=== PATIENT | female | born 1985 | race Asian ===

== ENCOUNTER 2017-07-12 00:30 | Inpatient (IN) | payer SELFPAY ==
[~2017-07-12] VITALS: Ht 165 cm; Wt 81.6 kg
[2017-07-12] MEDS: LACTATED RINGERS 1,000 ML IV SCH ×2 (01:33→02:39)
[2017-07-12 01:42] LABS: BASOPHILS # (AUTO) 0.1 K/uL (0.00-0.22); BASOPHILS % (AUTO) 0.7 % (0.0-2.0); EOSINOPHILS # (AUTO) 0.1 K/uL (0-0.4); EOSINOPHILS % (AUTO) 0.9 % (0.0-4.0); HEMATOCRIT 36.4 % (36-48); HEMOGLOBIN 12.2 g/dL (12.0-16.0); LYMPHOCYTES # (AUTO) 1.2 K/uL (2.5-16.5); LYMPHOCYTES % (AUTO) 12.8 % (20.5-51.1); MEAN CORPUSCULAR HEMOGLOBIN 30 pg (27-31); MEAN CORPUSCULAR HGB CONC 34 g/dL (33-37); MEAN CORPUSCULAR VOLUME 90 fL (80-94); MONOCYTES # (AUTO) 0.8 K/uL (0.8-1.0); MONOCYTES % (AUTO) 8.1 % (1.7-9.3); NEUTROPHILS # (AUTO) 7.5 K/uL (1.8-7.7); NEUTROPHILS % (AUTO) 77.5 % (42.2-75.2); PLATELET COUNT (AUTO) 217 K/uL (140-450); RED BLOOD CELL COUNT(AUTO) 4.06 MIL/uL (4.20-5.40); RED CELL DISTRIBUTION WIDTH 14.2 % (11.6-13.7); WHITE BLOOD COUNT (AUTO) 9.7 K/uL (4.8-10.8)
[2017-07-12 01:43] LABS: APPEARANCE,URINE CLEAR (CLEAR); BILIRUBIN,URINE NEGATIVE (NEGATIVE); BLOOD, URINE NEGATIVE (NEGATIVE); COLOR,URINE YELLOW (YELLOW); LEUKOCYTE ESTERASE ,URINE NEGATIVE (NEGATIVE); NITRITE, URINE NEGATIVE (NEGATIVE); UGLUCOSE NEGATIVE (NEGATIVE)
[2017-07-12 01:51] LABS: RBC,URINE 0-5 (RARE) /HPF (0-5); WBC,URINE 0-5 (RARE) /HPF (0-5)
[2017-07-12] MEDS ORDERED: FERR325E14 PO (02:15)
[2017-07-12] MEDS ORDERED: PREN-546 PO (02:15)
[2017-07-12 02:19] VITALS: BP 105/69
[2017-07-12] MEDS ORDERED: INFLUENZA VIRUS VACCINE QUAD 0.5 ML SYR IMVAC SCH (03:00)
[2017-07-12] MEDS ORDERED: ceFAZolin 1,000 MG VIAL ONE (05:08)
[2017-07-12] MEDS ORDERED: CITRIC ACID/SODIUM CITRATE 30 ML UDC ONE (05:08)
[2017-07-12] MEDS ORDERED: TRIAMCINOLONE 10 MG/ML 5ML VIAL ONE (05:56)
[2017-07-12] MEDS ORDERED: OXYTOCIN 10 UNITS/ML VIAL ONE (05:56)
[2017-07-12] MEDS ORDERED: [UNRECOGNIZED DRUG - REMARK] IVP ONE (06:00)
[2017-07-12] MEDS ORDERED: BUPIVACAINE-MPF 0.75% 10 ML VIAL INJ ONE (06:00)
[2017-07-12] MEDS ORDERED: CITRIC ACID/SODIUM CITRATE 30 ML UDC PO SCH (06:00)
[2017-07-12] MEDS ORDERED: fentaNYL 0.05 MG/ML VIAL ONE (06:02)
[2017-07-12] MEDS ORDERED: MORPHINE PRES FREE 10 MG/10 ML AMP IV ONE (06:03)
[2017-07-12] MEDS ORDERED: ceFAZolin 1,000 MG VIAL IVP ONE (06:10)
[2017-07-12] MEDS ORDERED: KETOROLAC 60 MG/2 ML VIAL IM PRN (06:25)
[2017-07-12] MEDS ORDERED: diphenhydrAMINE 50 MG/ML VIAL IVP PRN (06:25)
[2017-07-12] MEDS ORDERED: ONDANSETRON 4 MG/2 ML VIAL IVP PRN ×2 (06:25)
[2017-07-12] MEDS ORDERED: NALOXONE 0.4 MG/ML VIAL IVP PRN ×3 (06:25)
[2017-07-12] MEDS ORDERED: NALBUPHINE 10 MG/ML AMP IVP PRN (06:25)
[2017-07-12] MEDS ORDERED: diphenhydrAMINE 50 MG/ML VIAL ONE (06:37)
[2017-07-12] MEDS ORDERED: ONDANSETRON 4 MG/2 ML VIAL ONE (06:38)
[2017-07-12] MEDS ORDERED: OXYTOCIN 20 UNITS/LR PREMIX 1,000 ML IV ONE (06:38)
[2017-07-12] MEDS ORDERED: oxyCODONE/APAP 5/325 MG 1 TAB TAB PO PRN (06:45)
[2017-07-12] MEDS ORDERED: METHYLERGONOVINE 0.2 MG/ML AMP IM PRN (06:45)
[2017-07-12] MEDS ORDERED: SIMETHICONE 80 MG TAB.CHEW PO PRN (06:45)
[2017-07-12] MEDS ORDERED: MEASLES, MUMPS, AND RUBELLA 1 VIAL SQVAC PRN (06:45)
[2017-07-12] MEDS ORDERED: TEMAZEPAM 15 MG CAP PO PRN (06:45)
[2017-07-12] MEDS ORDERED: TRIMETHOBENZAMIDE 200 MG/2 ML SYR IM PRN (06:45)
--- NOTE | 2017-07-12 08:13 | NUR ---
PATIENT HAS BEEN SCREENED AND CATEGORIZED LOW NUTRITION RISK. PATIENT WILL BE SEEN WITHIN 7 DAYS OF ADMISSION. 07/19/17 JANET MCCARTNEY MBA, RD
[2017-07-12] MEDS: OXYTOCIN 20 UNITS in LACTATED RINGERS 1,000 ML IV SCH ×2 (08:32→16:42)
[2017-07-13] MEDS ORDERED: OXYTOCIN 20 UNITS/LR PREMIX 1,000 ML IV ONE (00:34)
[2017-07-13] MEDS: OXYTOCIN 20 UNITS in LACTATED RINGERS 1,000 ML IV SCH (00:47)
[2017-07-13] MEDS: HYDROcodone/APAP 5/325 MG 1 TAB TAB PO PRN (06:53)
[2017-07-13 07:03] LABS: HEMOGLOBIN 10.8 g/dL (12.0-16.0); MEAN CORPUSCULAR HEMOGLOBIN 30 pg (27-31); MEAN CORPUSCULAR HGB CONC 34 g/dL (33-37); MEAN CORPUSCULAR VOLUME 89 fL (80-94); PLATELET COUNT (AUTO) 214 K/uL (140-450); RED BLOOD CELL COUNT(AUTO) 3.59 MIL/uL (4.20-5.40); RED CELL DISTRIBUTION WIDTH 14.5 % (11.6-13.7); WHITE BLOOD COUNT (AUTO) 13.5 K/uL (4.8-10.8)
[2017-07-13 08:00] LABS: BASOPHILS % (MANUAL) 0 % (0-2); EOSINOPHILS % (MANUAL) 0 % (0-4); LYMPHOCYTES % (MANUAL) 13 % (20-46); MONOCYTES % (MANUAL) 9 % (5-12)
[2017-07-13] MEDS ORDERED: INFLUENZA VIRUS VACCINE QUAD 0.5 ML SYR IMVAC SCH (10:05)
[2017-07-13] MEDS: DOCUSATE SOD/SENNA 50/8.6 MG 1 TAB PO SCH (20:51)
[2017-07-13] MEDS: IBUPROFEN 800 MG TAB PO PRN (20:52)
[2017-07-14] MEDS: IBUPROFEN 800 MG TAB PO PRN (16:46)
[2017-07-14] MEDS: DOCUSATE SOD/SENNA 50/8.6 MG 1 TAB PO SCH (21:00)
[2017-07-15] MEDS: HYDROcodone/APAP 5/325 MG 1 TAB TAB PO PRN (06:31)
== END 2017-07-15 13:35 | disposition home or self-care (01) | DRG 766 ==
LOC: MLD 00:30 → MFCC 07:50
PROVIDERS: ADMIT Obstetrics & Gynecology; ATTEND Obstetrics & Gynecology
PROC: 10D00Z1 Extraction of Products of Conception, Low, Open Approach (ICD-10-PCS; principal; 2017-07-12 06:00)
PROC: 3E0234Z Introduction of Serum, Toxoid and Vaccine into Muscle, Percutaneous Approach (ICD-10-PCS; 2017-07-13)
PROC: 3E0234Z Introduction of Serum, Toxoid and Vaccine into Muscle, Percutaneous Approach (ICD-10-PCS; 2017-07-13)
DX: O34.211 Maternal care for low transverse scar from previous cesarean delivery (principal); Z23 Encounter for immunization; Z37.0 Single live birth; Z3A.39 39 weeks gestation of pregnancy
CPT/HCPCS: 36415; 51702; 81001; 85025; 86592; 86886; 86900; 86901; 90658; 90715; J0690; J1200; J2270; J2405; J2590; J3010; J3301; J3490; J7060; J7120